=== PATIENT | male | born 1995 | race Caucasian/White ===

== ENCOUNTER 2021-12-25 15:21 | Emergency (ER) | payer OTHER ==
[2021-12-25 15:30] VITALS: BP 132/77; PULSE 88; TEMP 98.1; BMI 33.2
== END 2021-12-25 15:58 | disposition home or self-care (01) ==
LOC: FER 15:21
DX: S09.93XA Unspecified injury of face, initial encounter (principal); Y35.891A Legal intervention involving other specified means, law enforcement official injured, initial encounter
CPT/HCPCS: 99281-25

== ENCOUNTER 2022-04-09 13:41 | Emergency (ER) | payer OTHER ==
[2022-04-09] MEDS ORDERED: DIPHTH,PERTUSS(ACELL),TET 0.5 ML DISP.SYRIN IM ONE ×2 (13:46→13:49)
[2022-04-09 13:50] VITALS: BP 133/85; PULSE 90; RESP 16; TEMP 98.2; BMI 32.5
== END 2022-04-09 13:56 | disposition home or self-care (01) ==
LOC: FER 13:41
PROC: 3E0234Z Introduction of Serum, Toxoid and Vaccine into Muscle, Percutaneous Approach (ICD-10-PCS; principal; 2022-04-09)
DX: S50.811A Abrasion of right forearm, initial encounter (principal); Y35.811A Legal intervention involving manhandling, law enforcement official injured, initial encounter
CPT/HCPCS: 90471; 99284-25

== ENCOUNTER 2022-04-10 11:30 | Emergency (ER) | payer OTHER ==
[2022-04-10 12:28] VITALS: BP 128/85; PULSE 88; RESP 16; TEMP 99.1; BMI 32.5
[2022-04-14] MEDS ORDERED: MAG HYDROX/AL HYDROX/SIMETH 30 ML UNIT-DOSE CUP ONE (16:46)
== END 2022-04-10 12:26 | disposition home or self-care (01) ==
LOC: FER 11:30
DX: Z77.21 Contact with and (suspected) exposure to potentially hazardous body fluids (principal)
CPT/HCPCS: 99281-25

== ENCOUNTER 2022-08-18 16:43 | Emergency (ER) | payer OTHER ==
[2022-08-18 17:00] VITALS: BP 145/103; PULSE 93; RESP 18; TEMP 99.1; BMI 32.5
== END 2022-08-18 17:22 | disposition home or self-care (01) ==
LOC: FER 16:43
DX: S60.512A Abrasion of left hand, initial encounter (principal); W22.8XXA Striking against or struck by other objects, initial encounter
CPT/HCPCS: 99282-25